=== PATIENT | male | born 1965 | race Caucasian/White ===

== ENCOUNTER 2020-08-22 10:03 | Emergency (ER) | payer SELFPAY ==
[~2020-08-22] VITALS: Ht 167.6 cm; Wt 67.0 kg
[2020-08-22 10:13] VITALS: BP 138/85
[2020-08-22] MEDS ORDERED: BACTRIM DS1 TAB PO (11:02)
[2020-08-22] MEDS ORDERED: HYDROCO/APAP1 TA9 PO (11:02)
== END 2020-08-22 11:20 | disposition home or self-care (01) | DRG 603 ==
LOC: ED 10:03
PROC: 0H9DX0Z Drainage of Right Lower Arm Skin with Drainage Device, External Approach (ICD-10-PCS; principal; 2020-08-22)
DX: L02.413 Cutaneous abscess of right upper limb (principal); I10 Essential (primary) hypertension; F17.210 Nicotine dependence, cigarettes, uncomplicated

== ENCOUNTER 2020-08-24 12:37 | Emergency (ER) | payer SELFPAY ==
[~2020-08-24] VITALS: Ht 167.6 cm; Wt 68.5 kg
[~2020-08-24 12:37] MED LIST: BACTRIM DS1 TAB PO; HYDROCO/APAP1 TA9 PO
[2020-08-24 14:37] VITALS: BP 127/69
== END 2020-08-24 14:37 | disposition home or self-care (01) | DRG 951 ==
LOC: ED 12:37
DX: Z48.01 Encounter for change or removal of surgical wound dressing (principal); T36.8X6A Underdosing of other systemic antibiotics, initial encounter; T36.1X6A Underdosing of cephalosporins and other beta-lactam antibiotics, initial encounter; I10 Essential (primary) hypertension; Z91.128 Patient's intentional underdosing of medication regimen for other reason

== ENCOUNTER 2020-10-29 22:03 | Emergency (ER) | payer SELFPAY ==
[~2020-10-29] VITALS: Ht 167.6 cm; Wt 81.0 kg
[2020-10-29] MEDS ORDERED: AMOXICILLIN500 M2 PO (23:19)
[2020-10-29] MEDS ORDERED: PERCOCET 5/321 COMBO PO (23:19)
[2020-10-29 23:32] VITALS: BP 142/90
== END 2020-10-29 23:32 | disposition home or self-care (01) | DRG 159 ==
LOC: ED 22:03
DX: K04.7 Periapical abscess without sinus (principal); K05.10 Chronic gingivitis, plaque induced; K02.9 Dental caries, unspecified; S02.5XXA Fracture of tooth (traumatic), initial encounter for closed fracture; I10 Essential (primary) hypertension; B19.20 Unspecified viral hepatitis C without hepatic coma; F17.200 Nicotine dependence, unspecified, uncomplicated; X58.XXXA Exposure to other specified factors, initial encounter